=== PATIENT | female | born 1965 | race African-American/Black ===

== ENCOUNTER → 2019-01-07 | Outpatient (CLI) | payer SELFPAY ==
--- NOTE | 2019-01-07 12:15 | Diagnostic Imaging Report ---
CLINICAL INDICATION: Patient with hip and lumbar pain. Patient has history of previous hip fracture. EXAM: X-ray of the lumbar spine, three views. COMPARISON: None. FINDINGS: There is grossly 3 mm of grade 1 retrolisthesis of L4 on L5. There is moderate loss of intervertebral disc height at the L3-L4 and L4-L5 levels. The moderately hypertrophic spurs at the L2-L3, L3-L4, and L4-L5 levels. There is facet arthropathy in the lower lumbar spine. Sacroiliac joints show no significant abnormality. There is mild left curvature of the thoracolumbar spine. Incompletely imaged reconstruction hardware is seen overlying the right hip region. IMPRESSION: 1: There is no acute lumbar spine fracture. 2: There is grade 1 retrolisthesis of L4 on L5. 3: Lumbar spine degenerative disease which is worst at the L3-L4 and L4-L5 levels. Dictated by: Dictated on workstation # [id number]
--- NOTE | 2019-01-07 12:20 | Diagnostic Imaging Report ---
CLINICAL INDICATION: Patient with hip and lumbar pain. Patient has history of previous hip fracture. EXAM: X-ray of the right hip, AP and frog-leg views. COMPARISON: None. FINDINGS: There is no acute fracture or dislocation in the right hip. There is reconstruction plate and screws seen overlying the right acetabular region which is healed. There are mildly hypertrophic spurs involving the proximal femoral head/neck junction region. Visualized portion of the sacrum is unremarkable. Phleboliths are seen in the pelvis. IMPRESSION: 1: There is no acute fracture or dislocation of the right hip. 2: Mild degenerative disease of the right hip. 3: Old healed fracture of the right acetabular region with reconstruction plate and screws in place. Dictated by: Dictated on workstation # [id number]
== END ==
LOC: RAD FS 11:42
PROVIDERS: ATTEND Physician Assistant
DX: M47.816 Spondylosis without myelopathy or radiculopathy, lumbar region (principal); M43.16 Spondylolisthesis, lumbar region; M16.11 Unilateral primary osteoarthritis, right hip
CPT/HCPCS: 72100; 73502

== ENCOUNTER → 2019-12-12 | Outpatient (CLI) | payer SELFPAY ==
--- NOTE | 2019-12-12 11:59 | Diagnostic Imaging Report ---
INDICATION: Low back pain. COMPARISON: January 07, 2019. TECHNIQUE: Three radiographs of the lumbar spine dated December 12, 2019. FINDINGS: Five lumbar-type vertebral bodies are present. Mild apex left curvature of the spine. 3 mm retrolisthesis of L4 on L5, stable. No additional significant anterolisthesis or retrolisthesis. Besides endplate degenerative changes, vertebral body heights are well maintained. The sacroiliac joints are intact. Postsurgical changes associated with the right pelvis are partially visualized. Multilevel small anterior osteophytes. Mild disc space height loss at L3/L4 and L4/L5, stable. Mild scattered facet joint degenerative changes. No acute fracture or dislocation. No suspicious radiopaque foreign body. IMPRESSION: No acute osseous abnormality with mild multilevel degenerative changes, greatest at L4/L5. Stable mild retrolisthesis of L4 on L5. Dictated by: Dictated on workstation # [id number]
== END ==
LOC: RAD FS 09:44
PROVIDERS: ATTEND Nurse Practitioner
DX: M47.816 Spondylosis without myelopathy or radiculopathy, lumbar region (principal)
CPT/HCPCS: 72100

== ENCOUNTER → 2019-12-20 | Outpatient (CLI) | payer OTHER ==
--- NOTE | 2019-12-20 14:34 | Diagnostic Imaging Report ---
PROCEDURE: MRI lumbar spine. TECHNIQUE: Multiplanar, multisequence MRI of the lumbar spine was performed without contrast. INDICATION: Chronic low back pain. No prior studies are available for comparison. There is some straightening of the normal lumbar lordotic curvature. There is minimal retrolisthesis of L4 on L5. The vertebral body heights are maintained. There is generalized lumbar spondylosis with variable disc space narrowing and desiccation, greatest L3-L4 and L4-L5 levels. There appears to be Modic changes of the endplates at the L4-L5 as well as L3-L4 levels. The conus is unremarkable at the L1 level. T12-L1: Central canal is widely patent. Neural foramina are patent. L1-L2: There are degenerative facet changes. Central canal is widely patent. Neural foramina are patent. L2-L3: Central canal is patent. Neural foramina are patent. L3-L4: Disc/osteophyte complex indents the ventral thecal sac. There is mild narrowing of the central canal. There is mild to moderate narrowing of the lateral recesses bilaterally. There is mild to moderate narrowing bilateral neural foramina. L4-L5: Broad-based disc/osteophyte complex indents the ventral thecal sac. Central canal is patent but there is significant narrowing of the lateral recesses bilaterally. There is also fairly significant bilateral neural foraminal stenosis. L5-S1: Central canal and neural foramina are widely patent. Paraspinous tissues are unremarkable. IMPRESSION: Lumbar spondylosis with central canal, lateral recess and neural foraminal narrowing described in level by level above. No acute compression fracture is seen. Dictated by: Dictated on workstation # [id number]
== END ==
LOC: RAD 13:36
PROVIDERS: ATTEND Nurse Practitioner
DX: M47.816 Spondylosis without myelopathy or radiculopathy, lumbar region (principal); M48.061 Spinal stenosis, lumbar region without neurogenic claudication; M51.37 Other intervertebral disc degeneration, lumbosacral region; M62.830 Muscle spasm of back
CPT/HCPCS: 72148

== ENCOUNTER → 2020-05-28 | Outpatient (CLI) | payer OTHER ==
--- NOTE | 2020-05-28 10:53 | Diagnostic Imaging Report ---
INDICATION: Lumbar pain. TECHNIQUE: Three views of the lumbar spine were obtained. FINDINGS/ IMPRESSION: The alignment is normal. The vertebral body heights are well-maintained. There is no spondylolysis or spondylolisthesis. There is some degenerative disc disease at L4-L5; otherwise, unremarkable. Dictated by: Dictated on workstation # [id number]
== END ==
LOC: RAD 10:12
PROVIDERS: ATTEND Anesthesiology Pain Medicine
DX: Z02.71 Encounter for disability determination (principal); M51.36 Other intervertebral disc degeneration, lumbar region
CPT/HCPCS: 72100

== ENCOUNTER → 2020-09-03 | Outpatient (CLI) | payer SELFPAY ==
--- NOTE | 2020-09-03 09:50 | Diagnostic Imaging Report ---
INDICATION: Shoulder pain. COMPARISON: None. FINDINGS: Two views of the left shoulder were obtained. There is no fracture, dislocation, or other acute bony abnormality identified. The soft tissues appear unremarkable. No radiopaque foreign bodies identified. The visualized portions of the left lung are clear. IMPRESSION: No acute fractures or dislocations of the left shoulder. Dictated by: Dictated on workstation # [id number]
== END ==
LOC: RAD FS 09:24
PROVIDERS: ATTEND Nurse Practitioner Family
DX: M25.512 Pain in left shoulder (principal)
CPT/HCPCS: 73030

== ENCOUNTER 2020-12-30 19:20 | Emergency (ER) | payer SELFPAY ==
[~2020-12-30] VITALS: Ht 180.3 cm; Wt 88.9 kg
[2020-12-30 19:32] VITALS: BP 117/91
--- NOTE | 2020-12-30 19:51 | ED Lower Extremity ---
General Chief Complaint: Lower Extremity Stated Complaint: RIGHT FOOT INJURY Nursing Triage Note: pt tripped while walking in house and struck foot on door, mild swelling noted, small abrasion to right great toe no bleeding Nursing Sepsis Screen: No Definite Risk Source: patient History of Present Illness Date Seen by Provider: Dec 30, 2020 Time Seen by Provider: 19:30 Initial Comments Patient is a 55-year-old female who presents with right foot injury. Patient states she inverted right foot/ankle 5 hours prior to ED arrival while walking wearing a flip-flop. Patient has an abrasion to the base of the right great toe and tenderness in the medial and lateral aspects of her midfoot. She reports pain with ambulation. She applied ice and Epson salts prior to ED arrival with limited improvement. No other injury or pain complaint. Onset: this afternoon Pain/Injury Location: right foot Method of Injury: twisted Modifying Factors: Improves With Other Allergies and Home Medications Allergies Coded Allergies: No Known Drug Allergies (Verified Allergy, Unknown, 07/28/07) Patient Home Medication List Home Medication List Reviewed: Yes Review of Systems Constitutional: see HPI EENTM: see HPI Respiratory: see HPI Cardiovascular: see HPI Gastrointestinal: see HPI Genitourinary: see HPI Musculoskeletal: see HPI Skin: see HPI Psychiatric/Neurological: See HPI All Other Systems Reviewed Negative Unless Noted: Yes Past Auykmay-Apggbu-Tfdtux Hx Past Med/Social Hx: Reviewed Nursing Past Med/Soc Hx Patient Social History Alcohol Use: Occasionally Uses Smoking Status: Current Everyday Smoker 2nd Hand Smoke Exposure: No Recent Infectious Disease Expo: No Recent Hopitalizations: No Seasonal Allergies Seasonal Allergies: No Past Medical History Surgeries: No Respiratory: No Cardiac: No Neurological: No Genitourinary: No Gastrointestinal: No Musculoskeletal: Yes Chronic Back Pain Endocrine: No HEENT: No Cancer: No Psychosocial: No Integumentary: No Blood Disorders: No Physical Exam Vital Signs Vital Signs - First Documented 12/30/20 19:32 Temp 36.8 Pulse 69 Resp 18 B/P (MAP) 117/91 (100) O2 Delivery Room Air Capillary Refill : Less Than 3 Seconds Height, Weight, BMI Height: '" Weight: lbs. oz. kg; 27.00 BMI Method: General Appearance: WD/WN, no apparent distress Feet: right foot bone tenderness (Lateral midfoot), right foot pain, right foot soft tissue tenderness (Lateral midfoot) Neurologic/Tendon: normal sensation, normal motor functions, normal tendon functions Neurologic/Psychiatric: no motor/sensory deficits Progress/Results/Core Measures Results/Orders My Orders Orders - PUJA GRAHAM DO Foot 3 View Right (12/30/20 19:31) Hydrocodone/Apap 5/325 Tablet (Lortab 5 (12/30/20 20:00) Nursing Communication (Order) (12/30/20 19:48) Medications Given in ED Current Medications Medications Dose Ordered Sig/Maile Route Start Time Stop Time Status Last Admin Dose Admin Acetaminophen/ Hydrocodone Bitart 1 ea ONCE ONCE PO 12/30/20 20:00 12/30/20 20:01 DC 12/30/20 20:01 1 EA Vital Signs/I&O 12/30/20 19:32 Temp 36.8 Pulse 69 Resp 18 B/P (MAP) 117/91 (100) O2 Delivery Room Air Blood Pressure Mean: 100 Departure Communication (Admissions) Right foot x-ray: No obvious displaced fracture on radiology report. Patient placed in a postoperative shoe was given pain medication. She appears to be more comfortable. Initial read of x-ray is negative. Patient instructed to wear shoe and follow-up with PCP if she continues to have pain with ambulation in 7 days. She may benefit from additional imaging studies for occult fracture. Impression Primary Impression: Right foot injury Disposition: HOME, SELF-CARE Condition: Stable Admissions Time/Decision to Admit Time: 20:05 Departure-Patient Inst. Decision time for Depature: 20:05 Referrals: [facility] (PCP) Primary Care Physician LORNA STARKS APRN (Family) Primary Care Physician Patient Instructions: Foot Sprain ED Add. Discharge Instructions: You were evaluated emergency department for right foot injury. Please continue to wear orthopedic shoe take ibuprofen as needed for pain. Take tramadol as needed for additional relief. If you continue to have pain with weightbearing and 5 to 7 days, follow-up with your PCP for repeat evaluation and consideration of additional imaging studies. All discharge instructions reviewed with patient and/or family. Voiced understanding. Scripts Tramadol HCl (Tramadol HCl) 50 Mg Tablet 50 MG PO Q6H, #10 TAB Prov: PUJA GRAHAM DO 12/30/20 PUJA GRAHAM DO Dec 30, 2020 19:51
--- NOTE | 2020-12-30 19:59 | Diagnostic Imaging Report ---
INDICATION: Right foot pain. COMPARISON: None available. TECHNIQUE: Three nonweightbearing views of the right foot. FINDINGS: No fracture or traumatic malalignment. No feature of metatarsal or calcaneal stress fracture. No discrete soft tissue swelling or radiopaque foreign body. IMPRESSION: No acute fracture within the right foot. Dictated by: Dictated on workstation # [id number]
[2020-12-30] MEDS ORDERED: HYDROcodone/APAP 5 MG/325 MG (LORTAB) TAB PO ONE (20:00)
[2020-12-30] MEDS ORDERED: TRAM50TA3 PO (20:06)
== END 2020-12-30 20:09 | disposition home or self-care (01) ==
LOC: EDUNIT# 19:20 → ER FS 19:22
DX: S99.921A Unspecified injury of right foot, initial encounter (principal); S90.411A Abrasion, right great toe, initial encounter; F17.210 Nicotine dependence, cigarettes, uncomplicated; W18.49XA Other slipping, tripping and stumbling without falling, initial encounter
CPT/HCPCS: 73630

== ENCOUNTER → 2021-07-05 | Outpatient (CLI) | payer OTHER ==
[~2021-07-05] MED LIST: TRAM50TA3 PO
--- NOTE | 2021-07-05 16:02 | Diagnostic Imaging Report ---
PROCEDURE: MRI left joint lower extremity without contrast. TECHNIQUE: Multiplanar, multisequence non contrast-enhanced MRI of the left lower extremity was accomplished. INDICATION: Left knee swelling and pain. Meniscus tear. COMPARISON: None. FINDINGS: No acute fracture is seen in the left knee. Alignment appears normal. There is mild bone marrow edema at the peripheral medial compartment, which is likely degenerative. There are small marginal osteophytes. There is a very large left knee joint effusion. The articular cartilage and patellofemoral compartment demonstrates a small full-thickness defect measuring 3 mm at the lateral facet. The articular cartilage in the medial compartment demonstrates full-thickness cartilage loss at the weightbearing aspect. The cartilage in the lateral compartment demonstrates moderate thinning and surface irregularity. There is a complex tear of the posterior horn and body of the medial meniscus, predominantly horizontal, with blunting of the free edge. The lateral meniscus appears intact. The anterior and posterior cruciate ligaments are intact. No tears are seen in the medial collateral ligament over the lateral collateral ligamentous complex. There is deep soft tissue edema about the knee. The extensor mechanism demonstrates no acute abnormality. There is fragmentation at the tibial tuberosity which may be from old Pat-Schlatter disease. IMPRESSION: 1. Tearing of the medial meniscus. 2. Tricompartmental degenerative change and cartilage loss, with full-thickness defects at the medial compartment. 3. Very large left knee joint effusion. Dictated by: Dictated on workstation # [id number]
== END ==
LOC: RAD 14:45
PROVIDERS: ATTEND Nurse Practitioner
DX: S83.242A Other tear of medial meniscus, current injury, left knee, initial encounter (principal); S83.262A Peripheral tear of lateral meniscus, current injury, left knee, initial encounter; M17.12 Unilateral primary osteoarthritis, left knee; M25.462 Effusion, left knee
CPT/HCPCS: 73721

== ENCOUNTER → 2022-01-23 | Outpatient (CLI) | payer MEDICAID ==
--- NOTE | 2022-01-23 15:05 | Diagnostic Imaging Report ---
INDICATION: Pain and numbness in left arm and fingers. TIME OF EXAM: 11:30 AM There is some straightening of the normal cervical lordotic curvature. Multilevel degenerative disc disease is noted, greatest at C5-C6, C6-C7 and C7-T1 levels with significant disc space narrowing and marginal spurring. Odontoid is intact. Prevertebral tissues are normal. No fractures are seen. IMPRESSION: Cervical spondylosis. No acute bony abnormality is detected. Dictated by: Dictated on workstation # [id number]
== END ==
LOC: RAD FS 11:17
PROVIDERS: ATTEND Nurse Practitioner Family
DX: M47.812 Spondylosis without myelopathy or radiculopathy, cervical region (principal); R20.0 Anesthesia of skin; R20.2 Paresthesia of skin
CPT/HCPCS: 72040

== ENCOUNTER → 2022-04-08 | Outpatient (CLI) | payer MEDICAID ==
--- NOTE | 2022-04-08 12:15 | Diagnostic Imaging Report ---
Indication: Pneumonia. Time of Exam: 11:57 AM No prior chest radiographs available for comparison. Heart size normal. There are extensive interstitial and airspace infiltrates throughout both lungs suggestive of pneumonia. No effusion or pneumothorax is identified. IMPRESSION: Bilateral infiltrates suggestive of pneumonia. Dictated by: Dictated on workstation # [id number]
== END ==
LOC: RAD FS 11:35
PROVIDERS: ATTEND Nurse Practitioner Family
DX: J18.9 Pneumonia, unspecified organism (principal); R91.8 Other nonspecific abnormal finding of lung field
CPT/HCPCS: 71046

== ENCOUNTER → 2022-04-28 | Outpatient (CLI) | payer MEDICAID ==
--- NOTE | 2022-04-28 13:15 | Diagnostic Imaging Report ---
INDICATION: Lower respiratory infection. PA and lateral chest. Comparison with exam from 04/08/2022 shows considerable improvement of the previously seen alveolar nodular infiltrates in the lungs. There are no effusions or pneumothoraces. IMPRESSION: Considerable improvement of the diffuse alveolar nodular pulmonary infiltrates. Only minimal residual infiltrate remains. Dictated by: Dictated on workstation # [id number]
== END ==
LOC: RAD FS 12:35
PROVIDERS: ATTEND Nurse Practitioner Family
DX: J18.9 Pneumonia, unspecified organism (principal); R91.8 Other nonspecific abnormal finding of lung field
CPT/HCPCS: 71046

== ENCOUNTER → 2022-09-04 | Outpatient (CLI) | payer MEDICAID ==
--- NOTE | 2022-09-04 14:31 | Diagnostic Imaging Report ---
INDICATION: Left knee pain. FINDINGS: 3 views. There is moderate narrowing of the medial compartment of the left knee. There is some hypertrophic change of the medial femoral condyle and tibial plateau. Lateral compartment is well-preserved. Patellofemoral joint shows good alignment with good preservation of the joint space. IMPRESSION: There is moderate degenerative arthritic change of the medial compartment of the left knee. Dictated by: Dictated on workstation # [id number]
== END ==
LOC: RAD FS 09:57
PROVIDERS: ATTEND Nurse Practitioner
DX: M17.12 Unilateral primary osteoarthritis, left knee (principal); M54.6 Pain in thoracic spine
CPT/HCPCS: 73562